=== PATIENT | male | born 1950 | race Caucasian/White ===

== ENCOUNTER 2017-06-22 11:17 | Emergency (ER) | payer MEDICARE ==
--- NOTE | 2017-06-22 12:50 | RAD ---
3 VIEWS RIGHT ANKLE: Date: 06/22/17 COMPARISON: None. HISTORY: Right ankle injury and pain after twisting ankle unloading a refrigerator from a truck. FINDINGS: Three views of the right ankle show a small avulsion fracture along the tip of the lateral malleolus. Alignment of the ankle mortise is maintained. Diffuse surrounding soft tissue swelling is seen. IMPRESSION: Small avulsion fracture of the tip of the lateral malleolus. POS: DEVYN
== END 2017-06-22 12:55 | disposition home or self-care (01) ==
LOC: SCSER 11:17
DX: S82.61XA Displaced fracture of lateral malleolus of right fibula, initial encounter for closed fracture (principal); W10.9XXA Fall (on) (from) unspecified stairs and steps, initial encounter